=== PATIENT | female | born 1955 | race Caucasian/White ===

== ENCOUNTER → 2023-12-15 08:36 | Outpatient (REF) | payer MEDICARE, SELFPAY | LOC: HWRAD 08:36 | PROVIDERS: ATTENDING PHYSICIAN Podiatrist; FAMILY PHYSICIAN Physician Assistant | DX: S92.355A Nondisplaced fracture of fifth metatarsal bone, left foot, initial encounter for closed fracture (principal) | CPT/HCPCS: 73630 ==

== ENCOUNTER → 2024-01-19 11:10 | Outpatient (REF) | payer MEDICARE, SELFPAY | LOC: HWRAD 11:10 | PROVIDERS: ATTENDING PHYSICIAN Podiatrist; FAMILY PHYSICIAN Physician Assistant | DX: S92.355A Nondisplaced fracture of fifth metatarsal bone, left foot, initial encounter for closed fracture (principal) | CPT/HCPCS: 73630 ==

== ENCOUNTER → 2024-03-02 10:03 | Outpatient (REF) | payer MEDICARE, SELFPAY | LOC: HWRAD 10:03 | PROVIDERS: ATTENDING PHYSICIAN Student in an Organized Health Care Education/Training Program; FAMILY PHYSICIAN Physician Assistant; REFERRING PHYSICIAN Podiatrist | DX: E55.9 Vitamin D deficiency, unspecified (principal); M54.50 Low back pain, unspecified; M81.0 Age-related osteoporosis without current pathological fracture; R29.890 Loss of height; S92.902S Unspecified fracture of left foot, sequela; Z71.2 Person consulting for explanation of examination or test findings; S92.352D Displaced fracture of fifth metatarsal bone, left foot, subsequent encounter for fracture with routine healing | CPT/HCPCS: 72040; 72072; 72110; 73523; 73630 ==

== ENCOUNTER → 2024-10-06 08:27 | Outpatient (REF) | payer MEDICARE, SELFPAY | LOC: RAD 08:27 | PROVIDERS: ATTENDING PHYSICIAN Nurse Practitioner Family; FAMILY PHYSICIAN Physician Assistant | DX: E21.3 Hyperparathyroidism, unspecified (principal); M81.0 Age-related osteoporosis without current pathological fracture; E55.9 Vitamin D deficiency, unspecified; E83.52 Hypercalcemia | CPT/HCPCS: 78071; A9500 ==

== ENCOUNTER → 2024-10-10 07:13 | Outpatient (REF) | payer MEDICARE, SELFPAY | LOC: HWRAD 07:13 | PROVIDERS: ATTENDING PHYSICIAN Nurse Practitioner Family; FAMILY PHYSICIAN Physician Assistant; REFERRING PHYSICIAN Student in an Organized Health Care Education/Training Program | DX: E21.3 Hyperparathyroidism, unspecified (principal); M81.0 Age-related osteoporosis without current pathological fracture; E55.9 Vitamin D deficiency, unspecified; E83.52 Hypercalcemia | CPT/HCPCS: 76536 ==

== ENCOUNTER 2025-01-03 06:13 | Day surgery (SDC) | payer MEDICARE, SELFPAY ==
[2024-12-15 13:47] VITALS: BMI 29.1
--- NOTE | 2024-12-27 10:04 | PTCARENOTE ---
Debo in Dr. Leija's office made aware of K 5.8.
--- NOTE | 2024-12-30 14:24 | PTCARENOTE ---
Dr. Alvarado made aware of K 5.8. Repeat potassium level ordered preop.
[2025-01-03] VITALS (17 sets, daily range): BP systolic 96–136; BP diastolic 49–81; BMI 29.1
[2025-01-03] MEDS: NEURONTIN 300 MG PO (07:11)
[2025-01-03] MEDS: TYLENOL 1000 MG PO (07:11)
[2025-01-03] MEDS: HEPARIN 5000 UNITS SC (07:11)
[2025-01-03 08:25] LABS: Turbo PTH 417.6 pg/ml (14.5-75.2)
[2025-01-03 09:12] LABS: Turbo PTH 37.6 pg/ml (14.5-75.2)
[2025-01-03 09:13] LABS: Potassium 4.6 mmol/L (3.5-5.1)
--- NOTE | 2025-01-03 09:56 | OR.RPT ---
Operative Report
Operative Report
Date of Operation: January 03, 2025
Preoperative Diagnosis: Hyperparathyroidism - E210
Postoperative Diagnosis: Same
Surgeon: Reyes Leija M.D.
Operation: Neck exploration, Right Superior & Inferior Parathyroidectomy - [id number]
Anesthesia: GET
Estimated Blood Loss: 1 cc
Drains: None
Specimen: Right Superior and Inferior Neck Nodules, rule out parathyroid adenomas
Complications: None
Procedure:
The patient was taken to the operating room and placed in the usual supine position. After adequate general endotracheal anesthesia was established, the patient's neck was extended, prepped, and draped in the typical sterile fashion. A 4 cm
transcervical incision was made two fingerbreadths above the sternal notch. The skin incision was made with the #15 blade, and this was taken through the skin into the subcutaneous tissue. The underlying platysma muscle was divided, and subplatysmal
flaps were created superiorly to the thyroid cartilage and inferiorly to the sternal notch. Strap muscles were identified and at the midline.
Attention was turned to the patient's right side of the neck. The right thyroid lobe was mobilized medially. During this process, the right recurrent laryngeal nerve was identified and preserved throughout the surgery. The right upper and lower neck
nodules were identified and noted to be enlarged, excised, and sent to the pathology department, which showed hypercellular parathyroid glands.
The attention was turned to the left side of the neck. The left thyroid lobe was mobilized medially. During this process, the left recurrent laryngeal nerve was identified and preserved throughout the surgery. There were no enlarged parathyroid
adenomas. The intraoperative PTH levels normalized.
After obtaining adequate hemostasis, the strap muscles were reapproximated with #3-0 Vicryl in a running fashion. The platysma muscle was reapproximated with #3-0 Vicryl in an interrupted fashion, and the skin was approximated with #4-0 Monocryl in
a running subcuticular fashion. The Steri-Strips and sterile dressings were placed. The patient tolerated the procedure well. The final instrument, needle, and sponge counts were correct. The patient was extubated and transferred to the PACU.
[2025-01-03] MEDS: DILAUDID 0.5 MG IV (10:18)
--- NOTE | 2025-01-03 12:29 | PTCARENOTE ---
Patient arrived to 2110 at 1225 from PACU. Patient AAOx3, c/o 7/10 neck pain. Call donovan in reach.
[2025-01-03] MEDS: TYLENOL 650 MG PO ×3 (12:50→20:41)
[2025-01-03] MEDS: ROXICODONE 5 MG PO ×2 (12:50→17:12)
[2025-01-04] MEDS: TYLENOL PO ×2 (00:44→04:59)
[2025-01-04 03:35] VITALS: BP 104/57
--- NOTE | 2025-01-04 04:08 | DOWNTIME ---
There was a [employer] Downtime on 01/04/2025 from 0100 to 01/04/2025 at 0255. Downtime documentation of patient's care, including medication administrations, has been reconciled in the electronic record per guidelines. Refer to the
patient's paper chart under the miscellaneous tab to see printed paper medication records and downtime forms.
[2025-01-04 07:00] VITALS: BP 111/58
[2025-01-04] MEDS: TYLENOL 650 MG PO ×2 (08:16→11:18)
--- NOTE | 2025-01-04 08:53 | CM ---
Cm reviewed medical records. Patient lives independently with her daughter and granddaughter. Patient does not have a history of VN, SNF or DME. Patient is active with her PCP.
PLAN: Home no needs.
--- NOTE | 2025-01-04 09:36 | W.DS.TRANS ---
DC Summary - Nurse Coordinator
-
Discharge Instructions:
Sleep Apnea Risk Low
Diet No restrictions
Activity As tolerated
Driving Restrictions no driving for 4 days
Bathing Restrictions OK to Shower
Instructions:
Stand-Alone Forms:
Changes to Home Medications: No
Discharge Medications:
DC Medications w/original date entered in [employer]
Thc 1 dose PO PRN PRN Insomnia, Anxiety 12/29/24
cholecalciferol (vitamin D3) 25 mcg (1,000 unit) chewable tablet (Vitamin D3) 50 mcg PO DAILY 12/29/24
denosumab 60 mg/mL subcutaneous syringe (Prolia) 60 mg SC [id number] 12/29/24
Home Medication Changes
Pending Results: No
--- NOTE | 2025-01-04 09:39 | W.DCSUMMARY ---
Discharge Summary
Discharge Data
Date of Admission: 01/03/25
Date of Discharge: 01/04/25
-
Pending Results: No
Hospital Course
DATE OF ADMISSION: 01/03/25
DATE OF DISCHARGE: 01/04/25
DIAGNOSIS: Hyperparathyroidism
PROCEDURE: Parathyroidectomy
HISTORY OF PRESENT ILLNESS:
She is a 68-year-old woman who presented for a surgical opinion regarding hyperparathyroidism. On routine blood work, she was found to have elevated calcium levels. Subsequent workup revealed findings consistent with hyperparathyroidism. Her intact
PTH and concurrent calcium levels from 08/31/24 were 216 pg/ml and 10.3 mg/dL, respectively. Her GFR was within normal limits. Her 24-hour urine calcium level from 09/02/24 was 197 mg. Subsequently, she had a parathyroid nuclear scan, which showed no
obvious parathyroid adenomas. However, upon my review, there was asymmetric activity in the right lower neck, and her thyroid ultrasound also showed a 9 mm nodule in the same area, suggesting a parathyroid adenoma. Her DEXA scan from 07/10/24 showed
osteopenia involving he right femoral neck. Furthermore, she experienced a spontaneous fracture in her left foot last October and is currently taking Prolia. I reviewed the Sestamibi, US, and DEXA scan films and the official readings in my office.
She has no previous history of radiation to her neck or face. She complained of musculoskeletal pain and kidney stones. She denied depression, fatigue, a foggy brain, palpitation, heartburn, constipation, pancreatitis, or kidney stones. She has no
personal or family history of endocrine neoplasms. She presented for parathyroidectomy and underwent surgery without any problems.
PAST MEDICAL HISTORY: osteoporosis and nephrolithiasis in 2015.
ALLERGIES: no medications.
REVIEW OF SYSTEMS: Unremarkable.
SOCIAL HISTORY: No EtOH or tobacco use.
FAMILY HISTORY: Non-contributory.
PHYSICAL EXAMINATION:
She was anicteric. Her head and neck examination revealed no lymphadenopathy or masses. The thyroid had no discrete nodules. The heart had a regular rhythm and rate and no murmurs. The chest was clear bilaterally.
HOSPITAL COURSE:
The patient presented to the hospital and underwent uneventful surgery. Postoperatively, the patient was transferred to the surgical floor, where she recovered without any problems. On postoperative day #1, she was discharged home. The patient�s
condition on discharged was stable.
Discharge Plan
-
Patient Disposition: Home (Routine Discharge)
Condition: Good
Diet: No restrictions
Activity: As tolerated
Driving Restrictions: no driving for 4 days
Bathing Restrictions: OK to Shower
Activity Restrictions/Additional Instructions:
Call Dr. Leija's office for a follow-up appointment. [phone]
Referrals:
Christelle Dean PA [Family Provider, [facility]]
Prescriptions:
Continued
cholecalciferol (vitamin D3) [Vitamin D3] 25 mcg (1,000 unit) Tablet,Chewable
50 mcg PO DAILY
Prolia 60 mg/mL Syringe
60 mg SC [id number]
Thc
1 dose PO PRN PRN (Reason: Insomnia, Anxiety)
Patient Comments:
Edible
Discharge Orders:
Discharge Patient (As Directed); Ordered 01/04/25
Ordered By: Reyes Leija
Discharge Date and Time
Print Language: SWISS
[2025-01-04 11:07] VITALS: BP 110/57
[2025-01-04] MEDS: ROXICODONE 5 MG PO (11:23)
== END 2025-01-04 11:53 | disposition home or self-care (01) ==
LOC: SDS 06:13
PROVIDERS: Anesthesiology; ATTENDING PHYSICIAN Surgery; FAMILY PHYSICIAN Physician Assistant
DX: E21.3 Hyperparathyroidism, unspecified (principal)
CPT/HCPCS: 60500; 83970; 84132; 88305; 88331